=== PATIENT | male | born 1985 | race Caucasian/White ===

== ENCOUNTER 2022-09-01 17:55 | Emergency (ER) | payer OTHER ==
[2022-09-01 18:00] VITALS: BP 148/80; PULSE 60; RESP 18; BMI 26.4
[2022-09-01 18:43] VITALS: TEMP 97.9
== END 2022-09-01 20:21 | disposition left against medical advice (07) ==
LOC: JER 17:55
DX: M54.9 Dorsalgia, unspecified (principal); R10.32 Left lower quadrant pain
CPT/HCPCS: 99281-25